=== PATIENT | male | born 1970 ===

== ENCOUNTER 2019-11-02 00:26 | Emergency (ER) | payer SELFPAY ==
[~2019-11-02] VITALS: Ht 177.8 cm; Wt 109.1 kg
[2019-11-02 00:30] VITALS: BP 161/96
== END 2019-11-02 02:15 | disposition left against medical advice (07) ==
LOC: EMS 00:27
DX: I10 Essential (primary) hypertension (principal); Z53.21 Procedure and treatment not carried out due to patient leaving prior to being seen by health care provider